=== PATIENT | male | born 1955 | race Two or more races ===

== ENCOUNTER 2021-02-27 13:32 | Emergency (ER) | payer MEDICAID, OTHER ==
[~2021-02-27] VITALS: Ht 188 cm; Wt 104.3 kg
[2021-02-27] MEDS ORDERED: FLUORESCEIN SOD OPTH TEST STRIP OP ONE (14:45)
[2021-02-27 15:37] VITALS: BP 165/90
== END 2021-02-27 15:40 | disposition home or self-care (01) ==
LOC: ER 13:32
DX: S05.02XA Injury of conjunctiva and corneal abrasion without foreign body, left eye, initial encounter (principal); E11.9 Type 2 diabetes mellitus without complications; I10 Essential (primary) hypertension; X58.XXXA Exposure to other specified factors, initial encounter; Y93.89 Activity, other specified; Y92.89 Other specified places as the place of occurrence of the external cause; Y99.8 Other external cause status

== ENCOUNTER 2022-06-06 06:09 | Emergency (ER) | payer MEDICAID ==
[~2022-06-06] VITALS: Ht 185.4 cm; Wt 96.4 kg
[2022-06-06] MEDS ORDERED: cloNIDine HCL 0.1 MG TAB PO ONE (06:45)
[2022-06-06 06:52] LABS: Hematocrit 40.3 % (41.0-53.0); Hemoglobin 13.5 g/dL (13.5-17.5); Mean Corpuscular Hemoglobin 28.2 pg (28.0-32.0); Mean Corpuscular Hgb Conc. 33.4 g/dL (32.0-36.0); Mean Corpuscular Volume 84.3 fL (80.0-100.0); Red Blood Cells 4.78 10^6/uL (4.5-5.90); Red Cell Distribution Width 15.8 % (11.8-14.3); White Blood Cell 7.5 10^3/uL (4.4-10.8)
[2022-06-06 06:55] LABS: Basophils % (manual) 0 (0.0-2.0); Blast Cells 0; Metamyelocytes % 0; Myelocytes % 0; Promyelocytes % 0; Reactive Lymphocytes 0
[2022-06-06 07:11] LABS: Albumin 3.8 g/dL (3.4-5.0); Potassium 4.2 mmol/L (3.5-5.1)
[2022-06-06 07:15] LABS: BUN/Creatinine Ratio 14.9; Bilirubin, Total 0.4 mg/dL (0.2-1.0)
[2022-06-06 07:54] LABS: Band Neutrophils % (manual) 6; Eosinophils % (manual) 15 (0-7); Lymphocytes % (manual) 30 (10.0-50.0); Monocytes % (manual) 10 (0-12)
[2022-06-06] MEDS ORDERED: ASPirin 325 MG TAB PO ONE (08:00)
[2022-06-06] MEDS ORDERED: FUROSEMIDE 20 MG/2 ML VIAL IV ONE (09:30)
[2022-06-06 09:48] VITALS: BP 145/99
== END 2022-06-06 09:55 | disposition home or self-care (01) ==
LOC: ER 06:09
DX: I16.0 Hypertensive urgency (principal); I11.0 Hypertensive heart disease with heart failure; I50.9 Heart failure, unspecified; E11.9 Type 2 diabetes mellitus without complications
CPT/HCPCS: 36415; 71045; 80053; 83735; 83880; 84484; 85007; 85027; 93005; 96374; 99285; J1940

== ENCOUNTER → 2022-07-29 | Outpatient (CLI) | payer OTHER ==
[~2022-07-29] VITALS: Ht 185.4 cm; Wt 95.7 kg
== END | disposition home or self-care (01) ==
LOC: Rad HDHVI 13:02
PROVIDERS: ATTEND Internal Medicine Cardiovascular Disease
DX: R06.02 Shortness of breath (principal); I10 Essential (primary) hypertension; E11.9 Type 2 diabetes mellitus without complications; F17.210 Nicotine dependence, cigarettes, uncomplicated
CPT/HCPCS: 78452; 93017; 96374; A9500

== ENCOUNTER → 2022-08-06 | Outpatient (CLI) | payer OTHER | END | disposition home or self-care (01) | LOC: Rad HDHVI 09:13 | PROVIDERS: ATTEND Internal Medicine Cardiovascular Disease | DX: I34.0 Nonrheumatic mitral (valve) insufficiency (principal); I11.9 Hypertensive heart disease without heart failure | CPT/HCPCS: 93306 ==

== ENCOUNTER → 2022-12-13 | Outpatient (CLI) | payer MEDICAID, OTHER ==
[~2022-12-13] MED LIST: DICL1GEL72 EX; EMPA1TAB3 PO; FINE20TA PO; GABA800T97 PO; HYDR-4798 PO; IBUP-1454 PO; LOSA100T58 PO; MAGN250T8 PO; METF-929 PO; METH-1181 PO; OLME5TAB24 PO
[2022-12-13 08:25] VITALS: BP 172/99; PULSE 56; RESP 16; O2SAT 97
[2022-12-13 08:34] VITALS: BP 167/95; PULSE 58; RESP 16; O2SAT 97
== END | disposition home or self-care (01) ==
LOC: Rad HDHVI 08:15
PROVIDERS: ATTEND Internal Medicine Cardiovascular Disease
DX: Z01.818 Encounter for other preprocedural examination (principal); R94.31 Abnormal electrocardiogram [ECG] [EKG]; I49.3 Ventricular premature depolarization; I51.7 Cardiomegaly; I50.43 Acute on chronic combined systolic (congestive) and diastolic (congestive) heart failure; R06.00 Dyspnea, unspecified
CPT/HCPCS: 71046; 93005; G0463

== ENCOUNTER 2022-12-16 06:57 | Day surgery (SDC) | payer OTHER, MEDICAID ==
[2022-12-13 08:58] LABS: Basophils # (auto) 0.1 10 ^3/uL (0-0.2); Eosinophils # (auto) 0.8 10 ^3/uL (0-0.8); Eosinophils % (auto) 9.8 % (0.0-7.0); Hematocrit 40.1 % (41.0-53.0); Hemoglobin 13.4 g/dL (13.5-17.5); Lymphocytes # (auto) 1.6 10 ^3/uL (0.4-5.4); Lymphocytes % (auto) 18.3 % (10.0-50.0); Mean Corpuscular Hemoglobin 28.3 pg (28.0-32.0); Mean Corpuscular Hgb Conc. 33.3 g/dL (32.0-36.0); Monocytes # (auto) 0.8 10 ^3/uL (0-1.3); Monocytes % (auto) 9.5 % (0.0-12.0); Neutrophils # (auto) 5.2 10 ^3/uL (1.6-8.6); Neutrophils % (auto) 61.4 % (37.0-80.0); Red Blood Cells 4.72 10^6/uL (4.5-5.90); Red Cell Distribution Width 15.3 % (11.8-14.3); White Blood Cell 8.5 10^3/uL (4.4-10.8)
[2022-12-13 09:14] LABS: INR 1.16 (0.9-1.15); Prothrombin Time 12.1 sec (9.3-11.8)
[2022-12-13 10:16] LABS: Anion Gap 8.5 (5-15); Carbon Dioxide 25.5 mmol/L (20-30); Chloride 106 mmol/L (98-107); Potassium 3.7 mmol/L (3.5-5.1); Sodium 140 mmol/L (136-145)
[2022-12-13 10:17] LABS: Calcium 9.8 mg/dL (8.5-10.1)
[2022-12-13 10:22] LABS: BUN/Creatinine Ratio 12.6 (10.0-20.0); Blood Urea Nitrogen 12 mg/dL (9-23); Glucose 161 mg/dL (74-106)
[~2022-12-16] VITALS: Ht 185.4 cm; Wt 98.4 kg
[2022-12-16] VITALS (7 sets, daily range): BP systolic 150–158; BP diastolic 90–124; PULSE 50–77; RESP 13–24; O2SAT 90–99
[2022-12-16] MEDS ORDERED: IOHEXOL 350 MG/ML 100ML IJ ONE ×2 (07:58→08:23)
[2022-12-16] MEDS ORDERED: LIDOCAINE 2%HCL (LOCAL ANESTH.) INJ 20ML MDV ONE (07:58)
[2022-12-16] MEDS ORDERED: fentaNYL CITRATE 100 MCG/2 ML VL ONE (08:22)
[2022-12-16] MEDS ORDERED: MIDAZOLAM HCL 2MG/2ML 2ml VIAL (1mg/ml) ONE (08:22)
[2022-12-16] MEDS ORDERED: ANGIOMAX 250 MG VIAL IV ONE (08:22)
[2022-12-16] MEDS ORDERED: SODIUM CHL 0.9% 0 ML ONE (08:25)
== END 2022-12-16 11:30 | disposition home or self-care (01) ==
LOC: CATH 06:57
PROVIDERS: ATTEND Internal Medicine Cardiovascular Disease
DX: R07.89 Other chest pain (principal); I42.0 Dilated cardiomyopathy; I11.0 Hypertensive heart disease with heart failure; I50.20 Unspecified systolic (congestive) heart failure; Z87.891 Personal history of nicotine dependence; E11.40 Type 2 diabetes mellitus with diabetic neuropathy, unspecified; E11.21 Type 2 diabetes mellitus with diabetic nephropathy; I48.91 Unspecified atrial fibrillation
CPT/HCPCS: 36415; 80048; 85025; 85610; 85730; 93458; C1894; J1644; J2250; J3010; Q9967; 99152

== ENCOUNTER → 2023-01-26 | Outpatient (CLI) | payer OTHER ==
[~2023-01-26] MED LIST changes: +ASPI1TAB19 PO; +CARV6.2551 PO; +CEPH500C PO; +HYDROmorphone HCL 2 MG/ML VL/or syr ONE; +IODIXANOL 320MG/ML 100ML BTL IV ONE; +LIDOCAINE 2%HCL (LOCAL ANESTH.) INJ 20ML MDV ONE; +MIDAZOLAM HCL 2MG/2ML 2ml VIAL (1mg/ml) ONE; +OMEP20TA PO; +SACU1TAB PO; +SPIR25TA8 PO; +VANCOMYCIN 1GM/250ML 250 ML IV ONE; +VANCOMYCIN HCL 1000 MG VL ONE; +fentaNYL CITRATE 100 MCG/2 ML VL ONE
[2023-01-26 09:23] VITALS: BP 142/82; PULSE 49; RESP 16; O2SAT 95
[2023-01-26 09:32] VITALS: BP 131/82; PULSE 58; RESP 16; O2SAT 95
== END | disposition home or self-care (01) ==
LOC: CHF HDHVI 09:10
PROVIDERS: ATTEND Internal Medicine Cardiovascular Disease
DX: R94.31 Abnormal electrocardiogram [ECG] [EKG] (principal); I11.0 Hypertensive heart disease with heart failure; I50.43 Acute on chronic combined systolic (congestive) and diastolic (congestive) heart failure; R06.02 Shortness of breath; I42.0 Dilated cardiomyopathy
CPT/HCPCS: 93005; G0463

== ENCOUNTER 2023-01-27 09:24 | Day surgery (SDC) | payer OTHER, MEDICAID ==
[2023-01-26 09:57] LABS: Hematocrit 38.1 % (41.0-53.0); Hemoglobin 12.6 g/dL (13.5-17.5); Mean Corpuscular Hemoglobin 27.2 pg (28.0-32.0); Mean Corpuscular Hgb Conc. 32.9 g/dL (32.0-36.0); Mean Corpuscular Volume 82.6 fL (80.0-100.0); Red Blood Cells 4.61 10^6/uL (4.5-5.90); Red Cell Distribution Width 15.6 % (11.8-14.3); White Blood Cell 8.4 10^3/uL (4.4-10.8)
[2023-01-26 10:01] LABS: Band Neutrophils % (manual) 0; Basophils % (manual) 0 (0.0-2.0); Blast Cells 0; Metamyelocytes % 0; Myelocytes % 0; Promyelocytes % 0; Reactive Lymphocytes 0
[2023-01-26 10:11] LABS: INR 1.06 (0.9-1.15); Partial Thromboplastin Time 28.2 SEC (24.5-34.5); Prothrombin Time 11.1 sec (9.3-11.8)
[2023-01-26 10:49] LABS: Chloride 106 mmol/L (98-107); Potassium 3.9 mmol/L (3.5-5.1); Sodium 137 mmol/L (136-145)
[2023-01-26 10:50] LABS: Anion Gap 5 (5-15); Calcium 9.5 mg/dL (8.5-10.1); Carbon Dioxide 26 mmol/L (20-30)
[2023-01-26 10:55] LABS: BUN/Creatinine Ratio 8.2 (10.0-20.0); Blood Urea Nitrogen 7 mg/dL (9-23); Glucose 143 mg/dL (74-106)
[2023-01-26 11:08] LABS: Eosinophils % (manual) 21 (0-7); Lymphocytes % (manual) 13 (10.0-50.0); Monocytes % (manual) 15 (0-12); Platelet Estimate Adequate
[~2023-01-27] VITALS: Ht 185.4 cm; Wt 98.0 kg
[2023-01-27] VITALS (8 sets, daily range): BP systolic 123–149; BP diastolic 84–95; PULSE 55–64; RESP 8–19; TEMP 98.5; O2SAT 94–97
[~2023-01-27 09:24] MED LIST changes: -ASPI1TAB19 PO; -CEPH500C PO; -DICL1GEL72 EX; -EMPA1TAB3 PO; -FINE20TA PO; -GABA800T97 PO; -HYDR-4798 PO; -HYDROmorphone HCL 2 MG/ML VL/or syr ONE; -IBUP-1454 PO; -IODIXANOL 320MG/ML 100ML BTL IV ONE; -LIDOCAINE 2%HCL (LOCAL ANESTH.) INJ 20ML MDV ONE; -LOSA100T58 PO; -MAGN250T8 PO; -METF-929 PO; -METH-1181 PO; -MIDAZOLAM HCL 2MG/2ML 2ml VIAL (1mg/ml) ONE; -OLME5TAB24 PO; -VANCOMYCIN 1GM/250ML 250 ML IV ONE; -VANCOMYCIN HCL 1000 MG VL ONE; -fentaNYL CITRATE 100 MCG/2 ML VL ONE
[2023-01-27] MEDS ORDERED: VANCOMYCIN HCL 1000 MG VL IV ONE (09:25)
[2023-01-27] MEDS ORDERED: NS AE IV ONE (09:25)
[2023-01-27] MEDS ORDERED: LIDOCAINE 2%HCL (LOCAL ANESTH.) INJ 20ML MDV IJ ONE (09:25)
[2023-01-27] MEDS ORDERED: MIDAZOLAM HCL 2MG/2ML 2ml VIAL (1mg/ml) IV ONE (09:25)
[2023-01-27] MEDS ORDERED: HYDROmorphone HCL 2 MG/ML VL/or syr IV ONE (09:25)
[2023-01-27] MEDS ORDERED: IODIXANOL 320MG/ML 100ML BTL IV ONE (09:25)
[2023-01-27] MEDS ORDERED: VANCOMYCIN IV ONE (09:25)
[2023-01-27] MEDS ORDERED: fentaNYL CITRATE 100 MCG/2 ML VL IV ONE (09:25)
[2023-01-27] MEDS ORDERED: [UNRECOGNIZED DRUG - OTHER] IV ONE (09:25)
[2023-01-27] MEDS ORDERED: D5 IV ONE (09:25)
[2023-01-27] MEDS ORDERED: FUROSEMIDE 20 MG/2 ML VIAL ONE ×2 (11:33→11:45)
[2023-01-27] MEDS ORDERED: CEPH500C PO (13:39)
[2023-01-27] MEDS ORDERED: ASPI1TAB19 PO (13:44)
== END 2023-01-27 15:12 | disposition home or self-care (01) ==
LOC: CATH 09:24
PROVIDERS: ATTEND Internal Medicine Cardiovascular Disease
DX: I42.0 Dilated cardiomyopathy (principal); I50.9 Heart failure, unspecified; F17.210 Nicotine dependence, cigarettes, uncomplicated; Z79.82 Long term (current) use of aspirin
CPT/HCPCS: 33225; 33249; 36415; 71045; 80048; 85007; 85027; 85610; 85730; C1769; C1882; C1887; C1895; C1898; C1900; J1170; J1940; J2250; J3010; J3370; Q9967; 99152; 99153

== ENCOUNTER → 2023-01-28 | Outpatient (CLI) | payer OTHER ==
[~2023-01-28] MED LIST changes: +ASPI1TAB19 PO; +CEPH500C PO
== END | disposition home or self-care (01) ==
LOC: Rad HDHVI 14:37
PROVIDERS: ATTEND Internal Medicine Cardiovascular Disease
DX: R07.89 Other chest pain (principal); Z95.0 Presence of cardiac pacemaker
CPT/HCPCS: 71046

== ENCOUNTER 2023-03-01 10:10 | Inpatient (IN) | payer OTHER, MEDICAID ==
[~2023-03-01] VITALS: Ht 188 cm; Wt 85.8 kg
[2023-03-01 11:32] LABS: Basophils # (auto) 0 10 ^3/uL (0-0.2); Basophils % (auto) 0.6 % (0.0-2.0); Eosinophils # (auto) 0.8 10 ^3/uL (0-0.8); Hemoglobin 12.8 g/dL (13.5-17.5); Lymphocytes # (auto) 1.7 10 ^3/uL (0.4-5.4); Lymphocytes % (auto) 19.6 % (10.0-50.0); Mean Corpuscular Hgb Conc. 32.9 g/dL (32.0-36.0); Mean Corpuscular Volume 82.1 fL (80.0-100.0); Monocytes # (auto) 1.1 10 ^3/uL (0-1.3); Monocytes % (auto) 13.1 % (0.0-12.0); Neutrophils % (auto) 57.7 % (37.0-80.0); Nucleated Red Blood Cells % 0.1 %; Red Blood Cells 4.75 10^6/uL (4.5-5.90); Red Cell Distribution Width 15.2 % (11.8-14.3); White Blood Cell 8.7 10^3/uL (4.4-10.8)
[2023-03-01 11:51] LABS: Alanine Aminotransferase 15 U/L (7-40); Albumin 4.9 g/dL (3.2-4.8); Alkaline Phosphatase 170 U/L (46-116); Anion Gap 9 (5-15); Aspartate Aminotransferase 45 U/L (13-40); BUN/Creatinine Ratio 22.1 (10.0-20.0); Blood Urea Nitrogen 21 mg/dL (9-23); Carbon Dioxide 24 mmol/L (20-30); Chloride 100 mmol/L (98-107); Glucose 113 mg/dL (74-106); Lipase 35 U/L (12-53); Potassium 4.3 mmol/L (3.5-5.1); Sodium 133 mmol/L (136-145)
[2023-03-01 11:52] LABS: Urine Bacteria NONE SEEN /hpf (None Seen); Urine Blood Negative /uL (Negative); Urine Clarity Clear (Clear); Urine Color Yellow (Yellow); Urine Hyaline Cast FEW /lpf (0 - 2); Urine Mucus MODERATE (None Seen); Urine Protein, UAD 1+ (Negative); Urine Specific Gravity 1.036 (1.001-1.035); Urine WBC 2 /hpf (0 - 3)
[2023-03-01 11:52] LABS: Bilirubin, Total 0.6 mg/dL (0.2-1.0)
[2023-03-01] MEDS ORDERED: ONDANSETRON HCL 4 MG/2 ML VIAL IV ONE ×2 (14:30→15:30)
[2023-03-01] MEDS ORDERED: SODIUM CHL 0.9% IV ONE (14:45)
[2023-03-01] MEDS ORDERED: ONDANSETRON HCL IV ONE (14:45)
[2023-03-01] MEDS ORDERED: OMNIPAQUE 12mg/ml 500ml ORAL SOLUTION PO ONE (15:15)
[2023-03-01] MEDS ORDERED: SACU1TAB PO (15:56)
[2023-03-01] MEDS ORDERED: metroNIDAZOLE 500MG/100ML 100 ML IV ONE (16:00)
[2023-03-01] MEDS ORDERED: DOCUSATE SOD 100 MG CAP PO PRN (16:00)
[2023-03-01] MEDS ORDERED: cefTRIAXone 1GM/50ML D5W 50 ML IV ONE (16:00)
[2023-03-01] MEDS ORDERED: ACETAMINOPHEN 325 MG TAB PO PRN (16:00)
[2023-03-01] MEDS ORDERED: MORPHINE SULFATE INJ 2 MG/ml SYRG IV PRN ×2 (16:00)
[2023-03-01] MEDS ORDERED: ONDANSETRON HCL 4 MG/2 ML VIAL IV PRN (16:00)
[2023-03-01] MEDS ORDERED: NITROGLYCERIN 0.4 MG SL TAB SL PRN (16:00)
[2023-03-01] MEDS ORDERED: DEXTROSE (50%) 50ML SYRG IV PRN (16:00)
[2023-03-01] MEDS ORDERED: IOHEXOL 300 MG/ML 100ML BOTTLE IJ ONE (16:20)
[2023-03-01] MEDS: InsuLIN REG 1unit/0.01ml Soln (100units/ml) SC SCH ×2 (16:53→22:50)
[2023-03-01] MEDS: ONDANSETRON HCL 4 MG/2 ML VIAL IV ONE ×2 (16:53→17:32)
[2023-03-01] MEDS: ACCU-CHEK COMFORT CURVE STRIP VI SCH ×2 (16:53→22:50)
[2023-03-01] MEDS: SODIUM CHLORIDE 0.9% 1,000 ML IV SCH (16:54)
[2023-03-01 19:40] VITALS: PULSE 86; RESP 18; O2SAT 96
[2023-03-01] MEDS: HYDROcodone-ACET 5/325MG TAB PO PRN (21:20)
[2023-03-01 22:30] VITALS: BP 153/83; PULSE 78; RESP 16; TEMP 98.3; O2SAT 95
[2023-03-02] VITALS (8 sets, daily range): BP systolic 101–116; BP diastolic 71–76; PULSE 80–94; RESP 16–20; TEMP 97.9–100.4; O2SAT 94–100
[2023-03-02] MEDS: metroNIDAZOLE 500MG/100ML 100 ML IV SCH ×4 (01:49→21:13)
[2023-03-02] MEDS: SACUBITRIL-VALSARTAN 24mg/26mg TAB PO SCH ×3 (01:52→21:07)
[2023-03-02] MEDS: CARVEDILOL 3.125 MG TAB PO SCH ×3 (01:52→21:06)
[2023-03-02] MEDS ORDERED: GABA800T97 PO (02:10)
[2023-03-02 05:54] LABS: Basophils # (auto) 0.1 10 ^3/uL (0-0.2); Eosinophils # (auto) 0.7 10 ^3/uL (0-0.8); Lymphocytes # (auto) 1.1 10 ^3/uL (0.4-5.4); Monocytes # (auto) 1.2 10 ^3/uL (0-1.3); White Blood Cell 8.6 10^3/uL (4.4-10.8)
[2023-03-02 05:56] LABS: Basophils % (auto) 0.7 % (0.0-2.0); Eosinophils % (auto) 8.2 % (0.0-7.0); Hematocrit 34.6 % (41.0-53.0); Hemoglobin 11.4 g/dL (13.5-17.5); Lymphocytes % (auto) 12.9 % (10.0-50.0); Mean Corpuscular Hemoglobin 26.9 pg (28.0-32.0); Mean Corpuscular Hgb Conc. 32.9 g/dL (32.0-36.0); Mean Corpuscular Volume 81.7 fL (80.0-100.0); Monocytes % (auto) 13.7 % (0.0-12.0); Neutrophils # (auto) 5.6 10 ^3/uL (1.6-8.6); Neutrophils % (auto) 64.5 % (37.0-80.0); Red Blood Cells 4.23 10^6/uL (4.5-5.90); Red Cell Distribution Width 14.9 % (11.8-14.3)
[2023-03-02 06:12] LABS: Alanine Aminotransferase 12 U/L (7-40); Albumin 4.4 g/dL (3.2-4.8); Alkaline Phosphatase 143 U/L (46-116); Anion Gap 11 (5-15); Aspartate Aminotransferase 43 U/L (13-40); BUN/Creatinine Ratio 30.3 (10.0-20.0); Bilirubin, Total 0.4 mg/dL (0.2-1.0); Blood Urea Nitrogen 23 mg/dL (9-23); Calcium 9.3 mg/dL (8.5-10.1); Carbon Dioxide 21 mmol/L (20-30); Chloride 101 mmol/L (98-107); Glucose 105 mg/dL (74-106); Potassium 3.9 mmol/L (3.5-5.1); Sodium 133 mmol/L (136-145); Total Protein 7.3 g/dL (5.7-8.2)
[2023-03-02] MEDS: InsuLIN REG 1unit/0.01ml Soln (100units/ml) SC SCH ×4 (06:26→21:03)
[2023-03-02] MEDS: ACCU-CHEK COMFORT CURVE STRIP VI SCH ×4 (06:26→21:03)
[2023-03-02] MEDS: HYDROcodone-ACET 5/325MG TAB PO PRN ×3 (06:26→21:07)
[2023-03-02] MEDS: SODIUM CHLORIDE 0.9% 1,000 ML IV SCH (08:40)
[2023-03-02] MEDS: SPIRONOLACTONE 25 MG TAB PO SCH (11:20)
[2023-03-02] MEDS: ASPirin-EC 81 mg tab PO SCH (11:20)
[2023-03-02] MEDS: cefTRIAXone 1GM/50ML D5W 50 ML IV SCH (11:22)
[2023-03-02] MEDS: GABAPENTIN 300 MG CAP PO SCH ×2 (13:11→21:07)
[2023-03-02 17:17] LABS: INR 1.24 (0.9-1.15); Partial Thromboplastin Time 34.4 SEC (24.5-34.5); Prothrombin Time 12.8 sec (9.3-11.8)
[2023-03-03] VITALS (7 sets, daily range): BP systolic 99–111; BP diastolic 53–69; PULSE 54–87; RESP 16–19; TEMP 97.4–98.9; O2SAT 94–100
[2023-03-03] MEDS: SODIUM CHLORIDE 0.9% 1,000 ML IV SCH ×2 (01:20→18:26)
[2023-03-03] MEDS ORDERED: LIDOCAINE 2%HCL (LOCAL ANESTH.) INJ 10ml MDV ONE (06:06)
[2023-03-03] MEDS: metroNIDAZOLE 500MG/100ML 100 ML IV SCH ×3 (06:31→21:44)
[2023-03-03] MEDS: GABAPENTIN 300 MG CAP PO SCH ×3 (06:32→21:43)
[2023-03-03] MEDS: HYDROcodone-ACET 5/325MG TAB PO PRN ×3 (06:32→21:43)
[2023-03-03] MEDS: InsuLIN REG 1unit/0.01ml Soln (100units/ml) SC SCH ×4 (06:37→21:22)
[2023-03-03] MEDS: ACCU-CHEK COMFORT CURVE STRIP VI SCH ×4 (06:37→21:22)
[2023-03-03 07:07] LABS: AFP Serum Tumor Marker 4.5 ng/mL (0.0-8.4)
[2023-03-03 10:04] LABS: Hemoglobin 9.7 g/dL (13.5-17.5)
[2023-03-03 10:06] LABS: Hematocrit 29.4 % (41.0-53.0)
[2023-03-03] MEDS: SACUBITRIL-VALSARTAN 24mg/26mg TAB PO SCH ×2 (10:11→21:43)
[2023-03-03] MEDS: ASPirin-EC 81 mg tab PO SCH (10:11)
[2023-03-03] MEDS: cefTRIAXone 1GM/50ML D5W 50 ML IV SCH (10:13)
[2023-03-03] MEDS: CARVEDILOL 3.125 MG TAB PO SCH ×2 (10:13→21:44)
[2023-03-03] MEDS: SPIRONOLACTONE 25 MG TAB PO SCH (10:29)
[2023-03-03] MEDS ORDERED: fentaNYL CITRATE 100 MCG/2 ML VL IV ONE (11:15)
[2023-03-03] MEDS ORDERED: MIDAZOLAM HCL 2MG/2ML 2ml VIAL (1mg/ml) IV ONE (11:15)
[2023-03-03] MEDS ORDERED: NALOXONE HCL 1MG/ML 2ML SYRINGE ONE (11:16)
[2023-03-03] MEDS ORDERED: MIDAZOLAM HCL 2MG/2ML 2ml VIAL (1mg/ml) ONE (11:16)
[2023-03-03] MEDS ORDERED: fentaNYL CITRATE 100 MCG/2 ML VL ONE (11:17)
[2023-03-03 15:33] LABS: Hemoglobin 10.1 g/dL (13.5-17.5)
[2023-03-03 15:34] LABS: Hematocrit 31.3 % (41.0-53.0)
[2023-03-03 21:53] LABS: Hematocrit 31.9 % (41.0-53.0); Hemoglobin 10.4 g/dL (13.5-17.5)
[2023-03-04] VITALS (7 sets, daily range): BP systolic 91–114; BP diastolic 49–67; PULSE 65–82; RESP 18–22; TEMP 98.1–98.8; O2SAT 95–100
[2023-03-04] MEDS: GABAPENTIN 300 MG CAP PO SCH ×3 (06:25→22:08)
[2023-03-04] MEDS: InsuLIN REG 1unit/0.01ml Soln (100units/ml) SC SCH ×4 (06:26→22:00)
[2023-03-04] MEDS: ACCU-CHEK COMFORT CURVE STRIP VI SCH ×4 (06:26→22:00)
[2023-03-04] MEDS: HYDROcodone-ACET 5/325MG TAB PO PRN ×2 (06:26→22:08)
[2023-03-04] MEDS: metroNIDAZOLE 500MG/100ML 100 ML IV SCH ×3 (06:27→22:11)
[2023-03-04] MEDS: cefTRIAXone 1GM/50ML D5W 50 ML IV SCH (08:42)
[2023-03-04] MEDS: SACUBITRIL-VALSARTAN 24mg/26mg TAB PO SCH ×2 (09:58→22:07)
[2023-03-04] MEDS: ASPirin-EC 81 mg tab PO SCH (09:58)
[2023-03-04] MEDS: SPIRONOLACTONE 25 MG TAB PO SCH (09:58)
[2023-03-04] MEDS: CARVEDILOL 3.125 MG TAB PO SCH ×2 (10:05→22:08)
[2023-03-04] MEDS: SODIUM CHLORIDE 0.9% 1,000 ML IV SCH (10:40)
[2023-03-04] MEDS ORDERED: CIPR250T3 PO (11:08)
[2023-03-04] MEDS ORDERED: METR-344 PO ×2 (11:08)
[2023-03-05] VITALS (7 sets, daily range): BP systolic 97–124; BP diastolic 61–76; PULSE 70–91; RESP 16–18; TEMP 98–98.4; O2SAT 95–100
[2023-03-05] MEDS: SODIUM CHLORIDE 0.9% 1,000 ML IV SCH ×2 (03:20→21:22)
[2023-03-05] MEDS: GABAPENTIN 300 MG CAP PO SCH ×3 (05:53→21:18)
[2023-03-05] MEDS: metroNIDAZOLE 500MG/100ML 100 ML IV SCH ×2 (05:54→14:48)
[2023-03-05] MEDS: ACCU-CHEK COMFORT CURVE STRIP VI SCH ×4 (05:57→21:25)
[2023-03-05] MEDS: InsuLIN REG 1unit/0.01ml Soln (100units/ml) SC SCH ×4 (06:00→21:25)
[2023-03-05] MEDS: cefTRIAXone 1GM/50ML D5W 50 ML IV SCH (09:06)
[2023-03-05] MEDS: CARVEDILOL 3.125 MG TAB PO SCH ×2 (10:00→21:19)
[2023-03-05] MEDS: ASPirin-EC 81 mg tab PO SCH (10:38)
[2023-03-05] MEDS: SACUBITRIL-VALSARTAN 24mg/26mg TAB PO SCH ×2 (10:39→21:18)
[2023-03-05] MEDS: SPIRONOLACTONE 25 MG TAB PO SCH (10:39)
[2023-03-05] MEDS: HYDROcodone-ACET 5/325MG TAB PO PRN ×2 (13:27→21:18)
[2023-03-06] VITALS (7 sets, daily range): BP systolic 89–119; BP diastolic 51–69; PULSE 57–98; RESP 17–20; TEMP 97.6–98.2; O2SAT 95–100
[2023-03-06 05:46] LABS: Basophils # (auto) 0 10 ^3/uL (0-0.2); Eosinophils # (auto) 0.3 10 ^3/uL (0-0.8); Hemoglobin 8.5 g/dL (13.5-17.5); Neutrophils # (auto) 5.4 10 ^3/uL (1.6-8.6); White Blood Cell 7.7 10^3/uL (4.4-10.8)
[2023-03-06 05:50] LABS: Basophils % (auto) 0.5 % (0.0-2.0); Eosinophils % (auto) 3.6 % (0.0-7.0); Hematocrit 25.9 % (41.0-53.0); Lymphocytes % (auto) 12.8 % (10.0-50.0); Mean Corpuscular Hemoglobin 26.8 pg (28.0-32.0); Mean Corpuscular Hgb Conc. 32.7 g/dL (32.0-36.0); Monocytes % (auto) 12.6 % (0.0-12.0); Neutrophils % (auto) 70.5 % (37.0-80.0); Red Blood Cells 3.16 10^6/uL (4.5-5.90); Red Cell Distribution Width 14.9 % (11.8-14.3)
[2023-03-06 05:58] LABS: Alanine Aminotransferase 11 U/L (7-40); Albumin 3.8 g/dL (3.2-4.8); Alkaline Phosphatase 101 U/L (46-116); Anion Gap 12 (5-15); Aspartate Aminotransferase 35 U/L (13-40); BUN/Creatinine Ratio 19.4 (10.0-20.0); Bilirubin, Total 0.3 mg/dL (0.2-1.0); Blood Urea Nitrogen 12 mg/dL (9-23); Calcium 8.8 mg/dL (8.7-10.4); Carbon Dioxide 20 mmol/L (20-30); Chloride 105 mmol/L (98-107); Glucose 92 mg/dL (74-106); Magnesium 1.8 mg/dL (1.6-2.6); Potassium 3.7 mmol/L (3.5-5.1); Sodium 137 mmol/L (136-145); Total Protein 6.4 g/dL (5.7-8.2)
[2023-03-06] MEDS: ACCU-CHEK COMFORT CURVE STRIP VI SCH ×4 (06:35→22:28)
[2023-03-06] MEDS: InsuLIN REG 1unit/0.01ml Soln (100units/ml) SC SCH ×4 (06:36→22:00)
[2023-03-06] MEDS: HYDROcodone-ACET 5/325MG TAB PO PRN ×2 (06:36→22:31)
[2023-03-06] MEDS: GABAPENTIN 300 MG CAP PO SCH ×3 (06:36→22:29)
[2023-03-06] MEDS: cefTRIAXone 1GM/50ML D5W 50 ML IV SCH (09:18)
[2023-03-06] MEDS: ASPirin-EC 81 mg tab PO SCH (10:45)
[2023-03-06] MEDS: SPIRONOLACTONE 25 MG TAB PO SCH (10:46)
[2023-03-06] MEDS: SACUBITRIL-VALSARTAN 24mg/26mg TAB PO SCH ×2 (10:46→22:29)
[2023-03-06] MEDS: CARVEDILOL 3.125 MG TAB PO SCH ×2 (10:47→22:30)
[2023-03-07 05:00] VITALS: BP 100/64; PULSE 66; RESP 19; TEMP 98; O2SAT 99
[2023-03-07 05:19] LABS: Eosinophils # (auto) 0.4 10 ^3/uL (0-0.8); Eosinophils % (auto) 5.6 % (0.0-7.0); Hemoglobin 8.3 g/dL (13.5-17.5)
[2023-03-07 05:23] LABS: Basophils # (auto) 0 10 ^3/uL (0-0.2); Basophils % (auto) 0.6 % (0.0-2.0); Hematocrit 24.5 % (41.0-53.0); Lymphocytes % (auto) 13.6 % (10.0-50.0); Mean Corpuscular Hemoglobin 27.7 pg (28.0-32.0); Mean Corpuscular Hgb Conc. 33.7 g/dL (32.0-36.0); Mean Corpuscular Volume 82.1 fL (80.0-100.0); Monocytes % (auto) 13.9 % (0.0-12.0); Neutrophils % (auto) 66.3 % (37.0-80.0); Red Blood Cells 2.98 10^6/uL (4.5-5.90); Red Cell Distribution Width 15.1 % (11.8-14.3); White Blood Cell 7.5 10^3/uL (4.4-10.8)
[2023-03-07 05:33] LABS: Albumin 3.8 g/dL (3.2-4.8); Alkaline Phosphatase 96 U/L (46-116); Anion Gap 11 (5-15); Aspartate Aminotransferase 31 U/L (13-40); BUN/Creatinine Ratio 20.3 (10.0-20.0); Blood Urea Nitrogen 13 mg/dL (9-23); Carbon Dioxide 23 mmol/L (20-30); Chloride 104 mmol/L (98-107); Glucose 100 mg/dL (74-106); Magnesium 1.9 mg/dL (1.6-2.6); Potassium 3.4 mmol/L (3.5-5.1); Sodium 138 mmol/L (136-145)
[2023-03-07 05:34] LABS: Bilirubin, Total 0.2 mg/dL (0.2-1.0); Total Protein 6.5 g/dL (5.7-8.2)
[2023-03-07] MEDS: ACCU-CHEK COMFORT CURVE STRIP VI SCH ×2 (05:59→11:39)
[2023-03-07] MEDS: GABAPENTIN 300 MG CAP PO SCH ×2 (05:59→14:19)
[2023-03-07] MEDS: InsuLIN REG 1unit/0.01ml Soln (100units/ml) SC SCH ×2 (06:02→11:30)
[2023-03-07] MEDS: HYDROcodone-ACET 5/325MG TAB PO PRN (06:06)
[2023-03-07 06:15] LABS: Alanine Aminotransferase 9 U/L (7-40)
[2023-03-07 08:00] VITALS: BP 104/67; PULSE 64; PULSE 70; RESP 17; TEMP 98.1
[2023-03-07 09:00] VITALS: BP 104/67; PULSE 64; RESP 17; TEMP 98.1; O2SAT 99
[2023-03-07] MEDS: ASPirin-EC 81 mg tab PO SCH (09:37)
[2023-03-07] MEDS: SACUBITRIL-VALSARTAN 24mg/26mg TAB PO SCH (09:37)
[2023-03-07] MEDS: SPIRONOLACTONE 25 MG TAB PO SCH (09:37)
[2023-03-07] MEDS: CARVEDILOL 3.125 MG TAB PO SCH (09:38)
[2023-03-07] MEDS: cefTRIAXone 1GM/50ML D5W 50 ML IV SCH (09:43)
[2023-03-07] MEDS ORDERED: POTASSIUM EFFERVESENT TAB 25 MEQ PO ONE (10:45)
[2023-03-07] MEDS ORDERED: ZOFR4T PO (12:12)
[2023-03-07 16:07] VITALS: BP 116/72; PULSE 71; TEMP 36.7
== END 2023-03-07 16:40 | disposition home or self-care (01) | DRG 357 ==
LOC: ER 10:10 → TELE 15:56 → CENTRAL 22:48 → TELE-CENTR 03-02 01:44
PROVIDERS: ADMIT Nurse Practitioner Family; ATTEND Internal Medicine
PROC: 07BD3ZX Excision of Aortic Lymphatic, Percutaneous Approach, Diagnostic (ICD-10-PCS; principal; 2023-03-03)
DX: C19 Malignant neoplasm of rectosigmoid junction (principal); D68.9 Coagulation defect, unspecified; E87.1 Hypo-osmolality and hyponatremia; I42.0 Dilated cardiomyopathy; I50.40 Unspecified combined systolic (congestive) and diastolic (congestive) heart failure; R59.0 Localized enlarged lymph nodes; K80.20 Calculus of gallbladder without cholecystitis without obstruction; E11.9 Type 2 diabetes mellitus without complications; I11.0 Hypertensive heart disease with heart failure; K40.90 Unilateral inguinal hernia, without obstruction or gangrene, not specified as recurrent; R19.00 Intra-abdominal and pelvic swelling, mass and lump, unspecified site; D64.9 Anemia, unspecified; E78.5 Hyperlipidemia, unspecified; E27.8 Other specified disorders of adrenal gland; K76.9 Liver disease, unspecified; Z83.3 Family history of diabetes mellitus; Z87.891 Personal history of nicotine dependence; Z95.810 Presence of automatic (implantable) cardiac defibrillator
CPT/HCPCS: 10005; 36415; 74150; 74176; 74177; 77012; 80053; 81001; 82105; 82270; 82378; 82962; 83605; 83690; 83735; 84484; 85014; 85018; 85025; 85045; 85610; 85730; 86301; 87045; 87177; 87493; 93005; 93926; 93971; G0378; J0696; J2001; J2250; J2405; J3490

== ENCOUNTER → 2023-04-08 | Outpatient (CLI) | payer OTHER ==
[~2023-04-08] MED LIST changes: +CIPR250T3 PO; +GABA800T97 PO; +ZOFR4T PO
== END | disposition home or self-care (01) ==
LOC: Rad HDHVI 10:00
PROVIDERS: ATTEND Internal Medicine Cardiovascular Disease
DX: I08.3 Combined rheumatic disorders of mitral, aortic and tricuspid valves (principal); I11.9 Hypertensive heart disease without heart failure; R06.02 Shortness of breath
CPT/HCPCS: 93306